=== PATIENT | male | born 1955 | race Caucasian/White ===

== ENCOUNTER 2024-08-09 11:22 | Emergency (ER) | payer MEDICARE, OTHER, SELFPAY ==
[2024-08-09] VITALS (7 sets, daily range): BP systolic 115–139; BP diastolic 68–89; BMI 25.6
--- NOTE | 2024-08-09 11:32 | EDRN ---
Mis HERNANDEZ in room w/ pt.
--- NOTE | 2024-08-09 11:38 | ED.GENMED ---
History of Present Illness
General
Chief Complaint: Male Genito-Urinary Symptoms
Source: patient
Exam Limitations: none
Time Seen by Provider: 08/09/24 11:28
History of Present Illness
History of Present Illness:
68yoM with a history of type 2 diabetes presenting with his for evaluation of difficulty urinating. Symptoms have been ongoing for 3 days. He reports a constant urge to urinate but is only able to urinate in small amounts at a time. He was
unable to sleep last night because he was constantly having to go to the bathroom. He feels like he is unable to completely void. No history of similar symptoms in the past. He was told many years ago by urologist that his prostate was slightly
enlarged on a rectal exam. He denies any nausea, vomiting, abdominal pain, flank pain, testicular pain, hematuria. Of note, patient tested positive for the flu yesterday.
Phy Exam
General Physical Exam
General Presentation: well appearing and no apparent distress
General age: appears stated age
General Skin: warm and dry
General Habitus: normal
General Mental: alert
ENT Exam
ENT Exam: normocephalic
Pulmonary Exam
Pulmonary Exam: no respiratory distress
Gastrointestinal Exam
Gastrointestinal Exam: non tender, soft, non distended and no cva tenderness
Neurological Exam
Neurological Exam: alert
[place] Coma Scale
Eye Opening: Spontaneous
Verbal Response: Oriented
Motor Response: Obeys Commands
GCS Total Score: 15
Skin Exam
Skin Exam: normal color and warm/dry
Psychiatric Exam
Psychiatric Exam: normal mood/affect
Course
Orders/Labs/Results
Orders:
Orders
08/09/24 11:28
Bladder Scan- Treatment ONCE
08/09/24 12:07
Urinalysis Reflex To Culture Urgent
Date Specimen was Collected: 08/09/24
Time Specimen was Collected: 12:06
Urine Microscopic Reflex Cult Urgent
Urine Culture Urgent
NARDA Source: U
Specimen Description:
Date Specimen was Collected: 08/09/24
Time Specimen was Collected: 12:06
Comment: ADD ON
08/09/24 12:23
CT Abd/pel Without Iv Or Oral Urgent
Comment:
Reason For Exam: hematuria, urinary frequency
08/09/24 13:00
Complete Blood Count/With Diff Urgent
Comprehensive Metabolic Panel Urgent
08/09/24 18:12
Add On - Microbiology Urgent
Tests Added?: urine culture
Doxycycline [Vibramycin] 100 mg PO NOW STA
Phenazopyridine HCl [Pyridium] 200 mg PO NOW STA
Tamsulosin [Flomax] 0.4 mg PO NOW STA
Abnormal Lab Results
08/09/24 08/09/24
12:07 13:00
WBC 3.7 L 10^3/uL
(4.8-10.8)
RBC 4.05 L 10^6/uL
(4.70-6.10)
Hgb 12.7 L g/dL
(13.0-18.0)
Hct 36.6 L %
(39.0-52.0)
MCH 31.4 H pg
(27.0-31.0)
Monocytes % 12.7 H %
(1.7-9.3)
Chloride 97 L mmol/L
(98-107)
Glucose 205 H mg/dl
(70-99)
Ur Occult Blood Reflex 1+ A
(Negative)
Urine RBC 3-6 A /HPF
(0-2)
Urine Bacteria (Reflex) Few A
(Negative)
Urine Glucose 4+ A
(Negative)
Urine Albumin (Reflex) 1+ A
(Neg - Trace)
08/09/24 13:00
08/09/24 13:00
Vital Signs
Initial and Last Documented VS:
Initial Vital Signs
Temp Pulse Resp BP Pulse Ox
97.5 F 73 18 139/89 99
08/09/24 11:24 08/09/24 11:24 08/09/24 11:24 08/09/24 11:24 08/09/24 11:24
Last Documented Vital Signs
Temp Pulse Resp BP Pulse Ox
97.5 F 77 16 130/73 97
08/09/24 11:24 08/09/24 18:39 08/09/24 18:39 08/09/24 18:39 08/09/24 18:39
MDM/Problems Addressed
Differential Diagnosis Includes:
68yoM here with difficulty urinating x 3 days. Feels the constant urge to urinate and feels like he does not completely void. Denies n/v, abd pain, flank pain. Hx of T2DM. VSS. He is well appearing in no distress. No abdominal or CVA tenderness on
exam. Differential diagnosis includes but is not limited to: urinary retention, BPH, UTI
Initial ED plan: Check UA and bladder scan.
*Critical Care Note
Total Time (30-74mins, 75-104mins- exclusive of procedures): Not Applicable
Update Note
Update Note:
Postvoid residual 15cc. UA with 1+ blood. No overt signs of infection. Unclear etiology of symptoms. Labs and CT added. Labs show a glucose of 205 which does not seem high enough to cause the degree of his symptoms. Renal function normal. CT
shows a 6mm nonobstructing R distal ureteral stone which is likely culprit of patient's symptoms. No hydronephrosis noted. Supportive care discussed including hydration, Flomax, and urine straining. Advised f/u with urology and ED return
precautions discussed. Patient in agreement with plan and was discharged in stable condition.
ED Attending Note
-
Portions of this chart may have been created with voice recognition software.� Occasional wrong word or��sound alike� substitutions may have occurred due to the inherent limitations of voice recognition software.
Discharge Plan
Departure
Patient Disposition: Home (Routine Discharge)
Date of Disposition: 08/09/24
Time of Disposition: 18:12
Patient with high blood pressure during this ER visit?: No
Discharge Problem:
Urinary urgency, Calculus of distal right ureter
Instructions: Kidney stones in adults, How to Strain Your Urine
Prescriptions:
New
tamsulosin [Flomax] 0.4 mg capsule
0.4 mg PO HS Qty: 30 0RF
Referrals:
Gomez Coronado MD [Active] -
Chandana Courtney MD [Family Provider] -
Activity Restrictions/Additional Instructions:
Take Flomax as prescribed. Drink plenty of fluids and strain your urine until stone has passed.
Please follow-up with urology. Return to the ER with any worsening symptoms, fevers, uncontrolled pain, or inability to urinate.
Your CT results: 6 mm NONOBSTRUCTING RIGHT DISTAL URETERAL CALCULUS
Interventions
Interventions:
*Risk Screen - Suicide Last Done: 08/09/24 12:11
*General Assessment Last Done: 08/09/24 12:11
*Neglect/Abuse Screening Last Done: 08/09/24 12:11
ED- Fall Risk Assessment Last Done: 08/09/24 12:11
*ED COVID-19 Vaccine History Last Done: 08/09/24 12:11
*Nursing Disposition Last Done: 08/09/24 18:55
ED-Male Genitourinary Assessment Last Done: 08/09/24 12:11
Discharge Date and Time
Discharge Date/Time: 08/09/24 18:56
Print Language: SAO TOMEAN
[2024-08-09 12:17] LABS: Urine Albumin 1+ (Neg - Trace); Urine Bilirubin Negative (Negative); Urine Character Clear (Clear); Urine Color Yellow; Urine Glucose 4+ (Negative); Urine Ketone Negative (Negative); Urine Leukocyte Negative (Negative); Urine Nitrite Negative (Negative); Urine Occult Blood 1+ (Negative); Urine Urobilinogen Negative (Neg - 1+)
[2024-08-09 12:56] LABS: Urine Mucus Moderate
[2024-08-09 12:57] LABS: Urine Bacteria Few (Negative); Urine Squamous Cell 0-2 /LPF (Few)
[2024-08-09 13:17] LABS: % Basophils 0.3 % (0-2); % Immature Granulocytes 0.3 % (0-0.5); % Lymphocytes 35.2 % (20.5-51.1); % Monocytes 12.7 % (1.7-9.3); % Neutrophils 48.5 % (42.2-75.2); Absolute Eosinophils 0.1 10^3/uL (0-0.7); Absolute Lymphocytes 1.3 10^3/uL (1.2-3.4); Absolute Monocytes 0.5 10^3/uL (0.1-0.6); Absolute Neutrophils 1.8 10^3/uL (1.4-6.5); Hematocrit 36.6 % (39.0-52.0); Hemoglobin 12.7 g/dL (13.0-18.0); Mean Corp Hgb Conc. 34.7 g/dL (33.0-37.0); Mean Corpuscular Hgb 31.4 pg (27.0-31.0); Mean Corpuscular Volume 90.4 fL (80.0-94.0); Mean Platelet Volume 9.1 fL (7.4-10.4); Nucleated Red Blood Cells % 0 % (-); Platelet Count 159 10^3/uL (130-400); Red Blood Cell Count 4.05 10^6/uL (4.70-6.10); Red Cell Dist. Width 11.9 % (11.5-14.5); White Blood Cell Count 3.7 10^3/uL (4.8-10.8)
[2024-08-09 13:27] LABS: ALT (SGPT) 28 U/L (0-50); AST (SGOT) 20 U/L (17-59); Albumin 4.4 g/dl (3.5-5.0); Alkaline Phosphatase 61 U/L (38-126); Blood Urea Nitrogen 17 mg/dl (9-20); Calcium 8.8 mg/dl (8.4-10.2); Carbon Dioxide 29 mmol/L (22-30); Chloride 97 mmol/L (98-107); Estimated Creatinine Clearance 83 ml/min; Glucose 205 mg/dl (70-99); Potassium 4.2 mmol/L (3.5-5.1); Sodium 135 mmol/L (135-145); Total Bilirubin 0.7 mg/dl (0.2-1.3); Total Protein 6.5 g/dl (6.3-8.2); eGFR > 60.00
[2024-08-09] MEDS: Pyridium 200 MG PO (18:36)
[2024-08-09] MEDS: FLOMAX 0.4 MG PO (18:36)
== END 2024-08-09 18:56 | disposition home or self-care (01) ==
LOC: EMR 11:22
PROVIDERS: Physician Assistant; EMERGENCY PHYSICIAN Emergency Medicine; FAMILY PHYSICIAN Family Medicine
DX: R39.15 Urgency of urination (principal); N20.1 Calculus of ureter
CPT/HCPCS: 99284; 74176; 80053; 81003; 81015; 85025; 87086

== ENCOUNTER 2024-08-29 23:40 | Emergency (ER) | payer MEDICARE, OTHER, SELFPAY ==
[2024-08-29 23:41] VITALS: BP 167/97
[2024-08-29 23:57] LABS: % Basophils 0.4 % (0-2); % Eosinophils 2.9 % (0-6); % Immature Granulocytes 0.3 % (0-0.5); % Lymphocytes 15.8 % (20.5-51.1); % Monocytes 6.4 % (1.7-9.3); % Neutrophils 74.2 % (42.2-75.2); Absolute Eosinophils 0.3 10^3/uL (0-0.7); Absolute Lymphocytes 1.7 10^3/uL (1.2-3.4); Absolute Monocytes 0.7 10^3/uL (0.1-0.6); Absolute Neutrophils 7.9 10^3/uL (1.4-6.5); Hematocrit 35.9 % (39.0-52.0); Hemoglobin 12.9 g/dL (13.0-18.0); Mean Corp Hgb Conc. 35.9 g/dL (33.0-37.0); Mean Corpuscular Hgb 31.7 pg (27.0-31.0); Mean Corpuscular Volume 88.2 fL (80.0-94.0); Mean Platelet Volume 9.1 fL (7.4-10.4); Nucleated Red Blood Cells % 0 % (-); Platelet Count 206 10^3/uL (130-400); Red Blood Cell Count 4.07 10^6/uL (4.70-6.10); Red Cell Dist. Width 12.5 % (11.5-14.5); White Blood Cell Count 10.6 10^3/uL (4.8-10.8)
[2024-08-29 23:58] LABS: Urine Albumin Negative (Neg - Trace); Urine Bilirubin Negative (Negative); Urine Character Clear (Clear); Urine Color Yellow; Urine Glucose 1+ (Negative); Urine Ketone 2+ (Negative); Urine Leukocyte Negative (Negative); Urine Nitrite Negative (Negative); Urine Occult Blood 1+ (Negative); Urine Specific Gravity 1.025 (<1.030); Urine Urobilinogen Negative (Neg - 1+)
[2024-08-30 00:21] LABS: ALT (SGPT) 24 U/L (0-50); AST (SGOT) 19 U/L (17-59); Albumin 4.4 g/dl (3.5-5.0); Alkaline Phosphatase 64 U/L (38-126); Blood Urea Nitrogen 26 mg/dl (9-20); Calcium 9.4 mg/dl (8.4-10.2); Carbon Dioxide 20 mmol/L (22-30); Chloride 101 mmol/L (98-107); Glucose 260 mg/dl (70-99); Lipase 141 U/L (23-300); Potassium 4.6 mmol/L (3.5-5.1); Sodium 133 mmol/L (135-145); Total Bilirubin 0.4 mg/dl (0.2-1.3); Total Protein 6.7 g/dl (6.3-8.2); eGFR 59.84
[2024-08-30 00:33] LABS: Urine Mucus Few; Urine Squamous Cell 0-2 /LPF (Few); Urine White Cell 0-2 /HPF (0-5)
[2024-08-30 01:02] VITALS: BP 169/90
[2024-08-30 01:13] VITALS: BMI 27.4
--- NOTE | 2024-08-30 01:30 | ED.GENMED ---
History of Present Illness
<Poli Dawson, DO - Last Filed: 08/30/24 01:36>
General
Chief Complaint: Abdominal Pain
Source: patient
Exam Limitations: none
Time Seen by Provider: 08/30/24 01:16
Nursing documentation reviewed up to this point in time: agreed with
History of Present Illness
History of Present Illness:
68-year-old male presents Emergency Department due to right lower quadrant abdominal pain, diagnosed with a kidney stone 3 weeks ago. He is taking Flomax. He was scheduled to see Dr. Coronado. The pain seemed to worsen.
Past History
<Poli Dawson, DO - Last Filed: 08/30/24 01:36>
Past History
ED Past Medical History: NIDDM and Other (Kidney stones)
ED Past Surgical History: None
Social History
Tobacco: Non-smoker
Alcohol: None
Drug: None
Personal:
Living: with family
Review of Systems
<Poli Dawson, DO - Last Filed: 08/30/24 01:36>
Review of Systems
Allergies reviewed?: Yes
All Other Systems: Not applicable
Constitutional: Reports no symptoms
EENT: Reports no symptoms
Respiratory: Reports no symptoms
Cardiac: Reports no symptoms
ABD/GI: Reports no symptoms
: Reports flank pain and difficulty voiding
Musculoskeletal: Reports no symptoms
Skin: Reports no symptoms
Neurological: Reports no symptoms
Endocrine: Reports no symptoms
Hematologic/Lymphatic: Reports no symptoms
Psychiatric: Reports no symptoms
Phy Exam
<Poli Dawson, DO - Last Filed: 08/30/24 01:36>
Physical Exam
Physical Exam:
Physical Exam
General: no apparent distress, not acutely ill
Neck: supple. no meningeal signs. normal posterior pharynx
Heart: s1/s2 regular rate and rhythm, no murmur. equal radial
pulses.
HEENT: Pupils equal round reactive to light, EOMI
Lungs: no acute respiratory distress. clear bilaterally
Abdomen: normal bowel sounds. not tender. no CVAT
Neuro: alert and oriented. no focal neurological deficits cranial nerves II through XII intact
Skin: no rash
Psychiatric: well kept. interactive and cooperative
Extremities: no edema. no calf tenderness. negative homans. good distal pulses
Course
<Poli Dawson, DO - Last Filed: 08/30/24 01:36>
Orders/Labs/Results
Orders:
Orders
08/29/24 23:49
Complete Blood Count/With Diff Urgent
Comprehensive Metabolic Panel Urgent
Lipase Urgent
08/29/24 23:53
Urinalysis Reflex To Culture Urgent
Date Specimen was Collected: 08/29/24
Time Specimen was Collected: 23:52
Urine Microscopic Reflex Cult Urgent
08/30/24 01:30
Abdomen Xray - 1 View [CR Abdomen - 1 View] Urgent
Comment:
Reason For Exam: distal right ureteral calculus
08/30/24 01:33
Ketorolac [Toradol] 15 mg .ROUTE .STK-MED ONE
Ketorolac [Toradol] 15 mg IV NOW STA
08/30/24 02:36
CT Abd/pel Without Iv Or Oral Urgent
Comment:
Reason For Exam: right flank pain, hematuria
Abnormal Lab Results
08/29/24 08/29/24
23:49 23:53
RBC 4.07 L 10^6/uL
(4.70-6.10)
Hgb 12.9 L g/dL
(13.0-18.0)
Hct 35.9 L %
(39.0-52.0)
MCH 31.7 H pg
(27.0-31.0)
Absolute Neuts (auto) 7.9 H 10^3/uL
(1.4-6.5)
Absolute Monos (auto) 0.7 H 10^3/uL
(0.1-0.6)
Lymphocytes % 15.8 L %
(20.5-51.1)
Sodium 133 L mmol/L
(135-145)
Carbon Dioxide 20 L mmol/L
(22-30)
BUN 26 H mg/dl
(9-20)
Glucose 260 H mg/dl
(70-99)
Urine Ketones 2+ A
(Negative)
Ur Occult Blood Reflex 1+ A
(Negative)
Urine RBC 3-6 A /HPF
(0-2)
Urine Glucose 1+ A
(Negative)
08/29/24 23:49
08/29/24 23:49
Vital Signs
Initial and Last Documented VS:
Initial Vital Signs
Temp Pulse Resp BP Pulse Ox
97.4 F 82 28 167/97 100
08/29/24 23:41 08/29/24 23:41 08/29/24 23:41 08/29/24 23:41 08/29/24 23:41
Last Documented Vital Signs
Temp Pulse Resp BP Pulse Ox
97.4 F 89 18 115/73 96
08/29/24 23:41 08/30/24 04:22 08/30/24 04:22 08/30/24 04:21 08/30/24 04:21
<Valerie Guerrier DO - Last Filed: 08/30/24 05:25>
Orders/Labs/Results
Orders:
Orders
08/29/24 23:49
Complete Blood Count/With Diff Urgent
Comprehensive Metabolic Panel Urgent
Lipase Urgent
08/29/24 23:53
Urinalysis Reflex To Culture Urgent
Date Specimen was Collected: 08/29/24
Time Specimen was Collected: 23:52
Urine Microscopic Reflex Cult Urgent
08/30/24 01:30
Abdomen Xray - 1 View [CR Abdomen - 1 View] Urgent
Comment:
Reason For Exam: distal right ureteral calculus
08/30/24 01:33
Ketorolac [Toradol] 15 mg .ROUTE .STK-MED ONE
Ketorolac [Toradol] 15 mg IV NOW STA
08/30/24 02:36
CT Abd/pel Without Iv Or Oral Urgent
Comment:
Reason For Exam: right flank pain, hematuria
Abnormal Lab Results
08/29/24 08/29/24
23:49 23:53
RBC 4.07 L 10^6/uL
(4.70-6.10)
Hgb 12.9 L g/dL
(13.0-18.0)
Hct 35.9 L %
(39.0-52.0)
MCH 31.7 H pg
(27.0-31.0)
Absolute Neuts (auto) 7.9 H 10^3/uL
(1.4-6.5)
Absolute Monos (auto) 0.7 H 10^3/uL
(0.1-0.6)
Lymphocytes % 15.8 L %
(20.5-51.1)
Sodium 133 L mmol/L
(135-145)
Carbon Dioxide 20 L mmol/L
(22-30)
BUN 26 H mg/dl
(9-20)
Glucose 260 H mg/dl
(70-99)
Urine Ketones 2+ A
(Negative)
Ur Occult Blood Reflex 1+ A
(Negative)
Urine RBC 3-6 A /HPF
(0-2)
Urine Glucose 1+ A
(Negative)
08/29/24 23:49
08/29/24 23:49
Vital Signs
Initial and Last Documented VS:
Initial Vital Signs
Temp Pulse Resp BP Pulse Ox
97.4 F 82 28 167/97 100
08/29/24 23:41 08/29/24 23:41 08/29/24 23:41 08/29/24 23:41 08/29/24 23:41
Last Documented Vital Signs
Temp Pulse Resp BP Pulse Ox
97.4 F 89 18 115/73 96
08/29/24 23:41 08/30/24 04:22 08/30/24 04:22 08/30/24 04:21 08/30/24 04:21
<Valerie Guerrier DO - Last Filed: 08/30/24 05:25>
*Radiology
Radiology exam reviewed: radiology read reviewed
*Pulse Oximetry
Patient hypoxic: no
*Critical Care Note
Total Time (30-74mins, 75-104mins- exclusive of procedures): Not Applicable
<Valerie Guerrier DO - Last Filed: 08/30/24 05:25>
Update Note
Update Note:
05:15
Patient remains pain-free after 1 IV dose of Toradol.
CAT scan shows 6 mm stone distal right ureter with mild right hydronephrosis.
Urinalysis without evidence of UTI.
Creatinine has bumped up mildly from 0.8 August 09 to now 1.3.
Tolerating oral fluids.
Will discharge to home with prescription for Percocet for as needed return of pain, Zofran for as needed return of nausea/vomiting.
Discussed importance of staying well-hydrated on a daily basis.
Follow-up with urology as already scheduled next week.
Return precautions discussed.
ED Attending Note
<Poli Dawson, DO - Last Filed: 08/30/24 01:36>
-
Portions of this chart may have been created with voice recognition software.� Occasional wrong word or��sound alike� substitutions may have occurred due to the inherent limitations of voice recognition software.
Discharge Plan
Departure
Patient Disposition: Home (Routine Discharge)
Date of Disposition: 08/30/24
Time of Disposition: 05:22
Patient with high blood pressure during this ER visit?: No
Condition: Good
Discharge Problem:
Calculus of distal right ureter
Instructions: Kidney Stones (DC), Kidney stone diet
Prescriptions:
New
oxycodone-acetaminophen [Percocet] 5-325 mg Tablet
1 tab PO Q4HPRN PRN (Reason: pain) Qty: 10 0RF
ondansetron 4 mg tablet,disintegrating
4 mg PO QID PRN (Reason: nausea and vomiting) Qty: 20 0RF
No Action
tamsulosin [Flomax] 0.4 mg capsule
0.4 mg PO HS Qty: 30 0RF
Janumet 50-1,000 mg Tablet
1 tab PO DAILY
rosuvastatin [Crestor] 10 mg Tablet
10 mg PO DAILY
aspirin 81 mg Tablet
81 mg PO DAILY
Referrals:
Gomez Coronado MD [Active] - Keep scheduled appt
Chandana Courtney MD [Family Provider] -
Interventions
Interventions:
*Risk Screen - Suicide Last Done: 08/29/24 23:41
*General Assessment Last Done: 08/29/24 23:41
*Neglect/Abuse Screening Last Done: 08/29/24 23:41
*ED- Fall Risk Assessment Last Done: 08/30/24 01:15
*ED COVID-19 Vaccine History Last Done: 08/30/24 01:15
SJ-[id number]-Uqknteuiho Assessment Last Done: 08/30/24 01:15
Discharge Date and Time
Print Language: MAC[place]
[2024-08-30] MEDS: TORADOL 15 MG IV (01:34)
[2024-08-30 02:13] VITALS: BP 138/82
[2024-08-30 03:00] VITALS: BP 132/72
[2024-08-30 04:21] VITALS: BP 115/73
== END 2024-08-30 05:30 | disposition home or self-care (01) ==
LOC: EMR 23:40
PROVIDERS: Emergency Medicine; EMERGENCY PHYSICIAN Emergency Medicine; FAMILY PHYSICIAN Family Medicine
DX: N20.1 Calculus of ureter (principal); Z87.442 Personal history of urinary calculi
CPT/HCPCS: 99285; 96374; 74018; 74176; 80053; 81003; 81015; 83690; 85025

== ENCOUNTER → 2024-09-08 10:33 | Outpatient (REF) | payer MEDICARE, OTHER, SELFPAY | LOC: RAD 10:33 | PROVIDERS: ATTENDING PHYSICIAN Surgery; FAMILY PHYSICIAN Family Medicine | DX: N13.2 Hydronephrosis with renal and ureteral calculous obstruction (principal) | CPT/HCPCS: 74018 ==

== ENCOUNTER → 2024-09-18 08:15 | Outpatient (REF) | payer MEDICARE, OTHER, SELFPAY | LOC: CLAB 08:15 | PROVIDERS: ATTENDING PHYSICIAN Surgery | DX: N13.2 Hydronephrosis with renal and ureteral calculous obstruction (principal) | CPT/HCPCS: 82365 ==